=== PATIENT | female | born 1970 | race Caucasian/White ===

== ENCOUNTER 2023-02-12 09:56 | Outpatient (CLI) | payer BC, SELFPAY ==
--- NOTE | 2023-02-12 10:00 | CRLHL7_ITS ---
For Patients: As a result of the Century Cures Act, medical imaging exams and procedure reports are released immediately into your electronic medical record. You may view this report before your referring provider. If you have questions, please contact your health care provider. INDICATION: GYNECOLOGICAL COMPLAINT TECHNIQUE: Chest 2 views. COMPARISON: None. FINDINGS: Cardiovascular and mediastinum: Heart size and vasculature are normal in caliber and appearance. Mediastinum is within normal limits. Lungs and pleural spaces: Lungs are clear. No sign of infiltrate or mass. No sign of pleural effusion. No pneumothorax. Bones and soft tissues: No significant findings. IMPRESSION: Unremarkable chest. Dictated by: uAgusto Parkinson MD @ 02/12/2023 18:15:32 (Electronically Signed)
== END 2023-02-12 09:57 | disposition home or self-care (01) ==
PROVIDERS: PCP Obstetrics & Gynecology; Visit Provider Obstetrics & Gynecology
DX: N94.9 Unspecified condition associated with female genital organs and menstrual cycle (principal)
CPT/HCPCS: 71046

== ENCOUNTER 2023-03-05 15:38 | Outpatient (CLI) | payer BC, SELFPAY ==
--- NOTE | 2023-03-05 16:00 | CRLHL7_ITS ---
For Patients: As a result of the Century Cures Act, medical imaging exams and procedure reports are released immediately into your electronic medical record. You may view this report before your referring provider. If you have questions, please contact your health care provider. Indication: ELEVATED CEA, PELVIC MASS Technique: Postcontrast CT chest, abdomen and pelvis. 69 cc Isovue 370 intravenous contrast. Please note that all CT scans at this facility use dose modulation, iterative reconstruction, and/or weight-based dosing when appropriate to reduce radiation dose to as low as reasonably achievable. Comparison: CT chest 05/13/2015 Findings: In the chest, there is no mediastinal, hilar or axillary adenopathy. No infiltrate, edema, effusion or pneumothorax. Mild linear subsegmental atelectasis right lower lobe. Small incidental pleural-based densities posteriorly. Stable incidental subcentimeter cyst within the left upper lobe. No intrinsic osseous lesion. In the abdomen, there is a subtle area of decreased attenuation within the anterior segment of the right hepatic lobe measuring 7 millimeters, 2/136 additional hypodensity within the right hepatic lobe near the dome measures 3 millimeters, 3/122. Adrenal glands normal. Normal spleen. Normal pancreas. Gallbladder normal. No bowel obstruction. No free air. In the pelvis, the uterus appears normal. There is a cyst within the right ovary measuring 2.9 cm. No excess pelvic free fluid or adenopathy. No bowel obstruction or free air. No abscess. No fracture. Impression: Indeterminate lesions within the liver measuring 7 millimeters and 3 millimeters. MRI liver with and without contrast recommended. No bowel obstruction or inflammatory change. 2.9 cm right ovarian cyst. Please note that all CT scans at this facility use dose modulation, iterative reconstruction, and/or weight-based dosing when appropriate to reduce radiation dose to as low as reasonably achievable. Dictated by Augusto Schreiber MD @ 03/08/2023 8:27:54 PM (Electronically Signed)
== END 2023-03-05 15:39 | disposition home or self-care (01) ==
LOC: CT 15:39
PROVIDERS: PCP Obstetrics & Gynecology; Referring Provider Obstetrics & Gynecology; Visit Provider Obstetrics & Gynecology
DX: R19.00 Intra-abdominal and pelvic swelling, mass and lump, unspecified site (principal); R97.0 Elevated carcinoembryonic antigen [CEA]; K76.9 Liver disease, unspecified; N83.201 Unspecified ovarian cyst, right side
CPT/HCPCS: 71260; 74177; Q9967

== ENCOUNTER 2025-08-25 05:13 | Emergency (ER) | payer BC, SELFPAY ==
--- OUTSIDE RECORDS SUMMARY | 2025-08-25 05:16 | XMS_ITS | Clinical Summary ---
Author Organization [facility] Address [address] [place] [id number] Care Team Providers Care Superintendent Marine Name Role Phone Unavailable Primary Care Provider Unavailabl e Allergies No known active allergies Medications No known medications Active Problems Problem Noted Date Diagnosed Date Hx of MTHFR mutation Immunizations Immunization Administration Dates Next Due COVID-19 vaccine (MicroPhage NTAdvanced Photonix 30mcg/0.3mL) MAXIM DORADO 10/30/2021,03/21/2021,02/21/2021 Influenza Virus, Unspecified 12/24/2019( Deferred: Patient Refused),09/13/2008 Influenza, IIV3 (Age >=3 years) 09/13/2008 Influenza, IIV4 11/21/2021,10/19/2018,11/08/2016 Tdap 08/02/2015 Varicella Vaccine 05/08/1998 Family History Medical History Relation Name Comments Cancer Paternal Grandmother breast Relation Name Status Comments Paternal Grandmother Social History Tobacco Use Types Packs/Day Years Used Date Smoking Tobacco: Never Smokeless Tobacco: Never Tobacco Cessation:Counseling Given: Yes Alcohol Use Standard Drinks/Week Comments Yes 0 (1 standard drink = 0.6 oz pur e alcohol) occasional Social Connections Answer Date Recorded Frequency of Communication with Friends and Fami ly Not on file 12/11/2022 Comments No Sex and Gender Information Value Date Recorded Sex Assigned at Not on file Legal Sex Female 5:25 AM MANAGER ACUTE Gender Identity Not on file Sexual Orientation Not on file Obstetrics History Para Term AB IAB SAB Ectopic Multiple Livin g Live Births 1 1 Date Outcome GA Total Labor Labor/2nd/3rd Weight Sex Type Anes PTL Norah A1 A5 Name Clin Comments:rectovaginal fistula Last Filed Vital Signs Vital Sign Reading Time Taken Comments Blood Pressure 161/95 12/30/2022 1:30 PM MANAGER ACUTE rec heck Pulse 96 12/30/2022 1:27 PM MANAGER ACUTE Temperature 36.9 C (98.5 F) 08/05/2016 4:38 PM CDT Respiratory Rate - - Oxygen Saturation 100% 12/30/2022 1:27 PM MANAGER ACUTE Inhaled Oxygen Concentration - - Weight 64.9 kg (143 lb) 12/30/2022 1:27 PM MANAGER ACUTE Height 164.5 cm (5' 4.76) 08/05/2016 4:38 PM CD T Body Mass Index 23.97 08/05/2016 4:38 PM CDT Plan of Treatment Health Maintenance Due Date Last Done Comments Depression screening for age 12+ 1984 HIV for age 15-65 1987 Hepatitis C screening for ag e 18-79 1990 Hepatitis B series for 19+ ( 1 of 3 - 19+ 3-dose series) 1991 Pap test for age 21-65 08/22/2012 08/22/2009 BMI (ht and wt on same day) for age 18+ 08/05/2017 08/05/2016 Colonoscopy through age 75 2017 Lipids for age 45-75 2017 Mammogram for age 45-75 2017 Pneumococcal series for age 50+ (1 of 1 - PCV) 2022 Zoster (shingles) series for age 50+ (1 of 2) 2022 COVID-19 vaccine series (2024- season) 2025 10/30/2021, 03/21/2021, 02/21/2021 Influenza Vaccine (#1) 2025 2, 10/19/2018, 11/08/2016, Additional history exists Tetanus booster 08/02/2025 08/02/2015 RSV vaccine for adults or (1 - 1-dose 75+ series) 2047 Procedures Procedure Name Priority Date/Time Associated Diagnosis Comments DEPENDENCY CASE MANAGER THIN PREP PAP SCREEN IMAGED Routine 08/22/2009 8:38 AM CDT Routine Gynecological Examination from Last 3 Months or Most Recently Relevant to Health Maintenance Results * DEPENDENCY CASE MANAGER THIN PREP PAP SCREEN IMAGED (08/22/2009 8:38 AM CDT) CYTOLOGY CYTOPATHOLOGY REPORT [facility] Status: Final Status [id number] CLINICAL INFORMATION Last Date of LMP :07/2009 Last Pap Date :May 2008 Last Pap Result :NIL ABN [place]/Bx Past 5 YRS :None Hormone Usage :None Menstrual Status :Regular Periods [place]/Bx done today :No Additional :None given Information HPV Request :HPV if ASCUS SPECIMEN SOURCE :Cervical/vaginal ThinPrep Vial, screening SPECIMEN ADEQUACY :Satisfactory for evaluation Endocervical component present. INT ERPRETATIO N/RESULT Negative for intraepithelial lesion or malignancy (NIL) Cytology 1st Screener :alfonzo Signed by :[facility] This specimen was screened by the FDA approved ThinPrep Imaging System and manually reviewed. NOTE: The Pap test is a screening technique, not a diagnostic procedure. It is used primarily to screen for squamous cancers and precursor lesions. Published studies have shown that it is subject to both false negative and false positive results. The pap test should not be used as the sole means to diagnose or exclude pre-malignant and malignant lesions. COLLECTED:08/22/09 ACCESSIONED: 08/25/09 SIGNED: 09/03/09 [facility] PAP [place] CODE NIL [facility] Cervical/Vaginal (Cervical/Vagina l) 08/22/2009 8:38 AM CDT 08/23/2009 8:35 AM CDT Gayle Rainey MD PATHOLOGY/CYTOLOGY Final R esult [facility] INTERNAL ZIP [address] [address] from Last 3 Months or Most Recently Relevant to Health Maintenance Insurance [facility]
--- OUTSIDE RECORDS SUMMARY | 2025-08-25 05:16 | XMS_ITS | Clinical Summary ---
Author Organization [facility] Address [address] [place] [address] Care Team Providers Care Head Boys Golf Coach Name Role Phone Unavailable Primary Care Provider Unavailabl e Source Comments Patient records contain information from all sites at [facility]. For routine questions regarding patient records, call [phone] during business hours, M-F 8:00 AM - 5:00 PM Central Time. Record requests for emergency care only can be directed to [phone] at any time.[facility] Allergies No known active allergies Medications * This document contains information received from the source organization and may not represent a complete record from that organization. cholecalciferol, vitamin D3, 25 mcg (1,000 Unit) tablet Take 1 tablet by mouth every 3 (three) days. 02/09/2009 Active Immunizations Immunization Administration Dates Next Due Influenza, Seasonal, Injectable 09/13/2008 Influenza, Unspecified 09/13/2008 RZV (SHINGRIX) 07/04/2023(Deferred: Other) Tdap 08/02/2015 NEISHA 05/08/1998 influenza vaccine quad (FLUZ ONE/FLUARIX) (6 months and older)(PF) 11/21/2021,10/19/2018,11/08/2016 Family History Medical History Relation Name Comments Cancer Father bladder Breast cancer (in one breast) Maternal Grandmother car ivon Dementia Mother dat Hyperlipidemia (high cholesterol) Mother dat Hypertension Mother dat Melanoma Mother dat Osteoporosis Mother dat Stroke Mother dat Breast cancer (in one breast) Paternal Grandmother mick is Relation Name Status Comments Father bairon Maternal Grandmother hieu Mother dat Paternal Grandmother elliot Social History Tobacco Use Types Packs/Day Years Used Date Smoking Tobacco: Never Passive Smoke Exposure: Past Smokeless Tobacco: Never Tobacco Cessation:Counseling Given: Not Answered Alcohol Use Standard Drinks/Week Comments Yes 1 (1 standard drink = 0.6 oz pur e alcohol) Humiliation, Afraid, Rape, and Kick questionnair e Answer Date Recorded Within the last year, have y ou been afraid of your partner or ex-partner? No 04/21/2023 Within the last year, have y ou been humiliated or emotionally abused in other ways by your partner or ex-partner? No Within the last year, have y ou been kicked, hit, slapped, or otherwise physically hurt by your partner or ex-partner? No 04/21/2023 Within the last year, have y ou been raped or forced to have any kind of sexual activity by your partner or ex-partner? No 04/21/2023 Hunger Vital Sign Answer Date Recorded Within the past 12 months, y ou worried that your food would run out before you got the money to buy more. Never true 04/21/20 23 Within the past 12 months, t he food you bought just didn't last and you didn't have money to get more. Never true 04/21/2023 PRAPARE - Transportation Answer Date Re corded In the past 12 months, has l ack of transportation kept you from medical appointments or from getting medications? No 04/03 In the past 12 months, has l ack of transportation kept you from meetings, work, or from getting things needed for daily living? No 04/21/2023 Housing Stability Answer Date Recorded What is your living situation today? [place] a [place] place [place] live 04/21/2023 Education Answer Date Recorded What is the highest level of school you have completed or the highest degree you have received? Bachelor's degree (e.g., BA, AB, BS) 06/20/2019 Comments Unknown Sex and Gender Information Value Date Recorded Sex Assigned at Female 11/14/2018 8:53 PM JOB SERVICE SPECIALIST Legal Sex Female 12:18 PM JOB SERVICE SPECIALIST Gender Identity Female 11/14/2018 8:53 PM JOB SERVICE SPECIALIST Sexual Orientation Not on file Last Filed Vital Signs Vital Sign Reading Time Taken Comments Blood Pressure 130/90 04/25/2023 8:55 AM CDT Pulse 101 04/25/2023 8:55 AM CDT Temperature - - Respiratory Rate - - Oxygen Saturation - - Inhaled Oxygen Concentration - - Weight 64.3 kg (141 lb 12.1 oz) 04/25/2023 8:55 AM CDT shoes on Height 167 cm (5' 5.75) 04/25/2023 8:55 AM CDT shoes on Body Mass Index 23.06 04/25/2023 8:55 AM CDT Plan of Treatment Health Maintenance Due Date Last Done Comments CT Colonography 1972 Cervical/Vaginal Cancer Screening 1972 Cologuard 1972 Colonoscopy 1972 Colorectal Cancer Screening 1972 FIT 1972 Fasting Glucose for Diabetes Screening 1972 HIV Screening 1972 Hepatitis C Screening 1972 Lipid (Cholesterol) Screening 1972 Hepatitis B Vaccines (1 of 3 - 19+ 3-dose series) 1991 Varicella Vaccines (2 of 2 - 13+ 2-dose series) 06/05/1998 05/08/1998 Pneumococcal vaccine (50+ years) (1 of 1 - PCV) 2022 Zoster Vaccines (1 of 2) 2022 Mammogram 07/08/2024 07/08/2023, 11/03, 01/05/2021, Additional history exists Depression Screening (Annual PHQ-2) 11/03/2024 COVID-19 Vaccine ( - season) 2025 10/30/2021, 03/21/2021, 02/21/2021 Influenza Vaccine (#1) 2025 , 10/19/2018, 11/08/2016, Additional history exists DTaP,Tdap,and Td Vaccines (2 - Td or Tdap) 08/02/2025 08/02/2015 IPV Vaccines Aged Out No longer eligi ble based on patient's age to complete this topic Medical Devices Implanted Type Area Cork Wirer Device Identifier Shelf Expiration Date Model / Serial / Lot Imaging Marker Imaging Marker Left: Breast Procedures Procedure Name Priority Date/Time Associated Diagnosis Comments BI BREAST DIAGNOSTIC BILATERAL WITH TOMOSYNTHESIS RAD - Routine (most inpatients and all outpatients) 07/08/2023 10:40 AM CDT Abnormal Mammogram from Last 3 Months or Most Recently Relevant to Health Maintenance Results * BI Breast Diagnostic Bilateral with Tomosynthesis (07/08/2023 10:40 AM CDT) Anatomical Region Laterality Modality Breast, Breast Imaging RST L OS, Breast Imaging ARZ LOS, Breast Imaging FLA LOS Bilateral Mammography 07/08/2023 11:4 2 AM CDT Impressions 07/08/2023 11:51 AM CDT No mammographic or sonographic findings of malignancy. RECOMMENDATION: Resume Routine Mammogram Annual screening mammogram. ASSESSMENT: BI-RADS: 2: Benign. Narrative 07/08/2023 11:51 AM CDT EXAM: BI BREAST DIAGNOSTIC BILATERAL WITH TOMOSYNTHESIS, BI ULTRASOUND BREAST FOCUSED LEFT INDICATION: Short term interval follow-up COMPARISON: Prior exam(s) were available and reviewed for comparison. DENSITY: c. The breast(s) are heterogeneously dense, which may obscure small masses. FINDINGS: Right breast: Stable mammogram. No new mass, distortion or suspicious microcalcifications. Left breast: Stable mammogram. Nothing concerning for malignancy. Left breast ultrasound: Follow-up reevaluation of the mass previously seen at 6 o'clock 4 cm from the nipple measures now 6.3 x 3.2 x 7.2 mm, as compared to 8.4 x 8.4 x 3.2 mm previously. This finding has been stable for over 2 years and considered benign. Procedure Note Gonzalez Kapoor M.D. - 07/08/2023 EXAM: BI BREAST DIAGNOSTIC BILATERAL WITH TOMOSYNTHESIS, BI ULTRASOUNDBREAST FOCUSED LEFT INDICATION: Short term interval follow-up COMPARISON: Prior exam(s) were available and reviewed for comparison. DENSITY: c. The breast(s) are heterogeneously dense, which may obscuresmall masses. FINDINGS: Right breast: Stable mammogram. No new mass, distortion or suspiciousmicrocalcifications. Left breast: Stable mammogram. Nothing concerning for malignancy. Left breast ultrasound: Follow-up reevaluation of the mass previously seenat 6 o'clock 4 cm from the nipple measures now 6.3 x 3.2 x 7.2 mm, as compared to 8.4 x 8.4 x 3.2mm previously. This finding has been stable for over 2 years and considered benign. IMPRESSION: No mammographic or sonographic findings of malignancy. RECOMMENDATION: Resume Routine Mammogram Annual screening mammogram. ASSESSMENT: BI-RADS: 2: Benign. Erica Bustamante M.D. IMG BI PROCEDURES Final Result from Last 3 Months or Most Recently Relevant to Health Maintenance Insurance [facility]
[2025-08-25 05:26] VITALS: BP 164/114; PULSE 115; RESP 16; TEMP 36.6; O2SAT 97; BMI 23.3
--- NOTE | 2025-08-25 05:50 | CRLHL7_ITS ---
For Patients: As a result of the Cures Act, medical imaging exams and procedure reports are released immediately into your electronic medical record. You may view this report before your referring provider. If you have questions, please contact your health care provider. INDICATION: Pain, not otherwise described. COMPARISON: None available. TECHNIQUE: Three views of the left shoulder. FINDINGS: Mineralization: Normal. Alignment: Normal. Bones and Joints: No fracture is identified. Soft Tissues: Amorphous periarticular soft tissue calcification is seen adjacent to the superolateral humerus consistent with calcific tendinitis of the rotator cuff. There is also an additional small comparatively well-defined round calcification measuring 2 mm. Differential diagnostic considerations include calcific bursitis. IMPRESSION: Amorphous periarticular soft tissue calcification is seen adjacent to the superolateral humerus consistent with calcific tendinitis of the rotator cuff. There is also an additional small comparatively well-defined round calcification measuring 2 mm. Differential diagnostic considerations include calcific bursitis. No osseous findings to explain the clinical history. Dictated by Mark Garcia MD @ 08/25/2025 6:14:31 AM (Electronically Signed)
[2025-08-25] MEDS: KETOROLAC 10 MG TABLET PO (05:55)
--- NOTE | 2025-08-25 06:13 | ED_ITS ---
HPI - General Adult General Chief complaint: Shoulder Injury/Pain Stated complaint: L shoulder pain Time Seen by Provider: 08/25/25 05:42 Source: patient Mode of arrival: ambulatory Limitations: no limitations History of Present Illness HPI narrative: 54-year-old female presents in the wee hours with 5 days of right shoulder pain at the anterior shoulder capsule area, does radiate slightly into the deltoid. Difficult to abduct and externally rotate the arm. Tried taking sub therapeutic doses of ibuprofen and Tylenol each once the day before. Has not taken medication this morning. No trauma or injury. Has not had this evaluated in clinic or urgent care. Try doing some ?stretches? with some temporary improvement in symptoms. Difficult to sleep. No history of prior surgery to this area. No neck pain. No radiculopathy. No fever or headache. No shortness of breath. No difficulties with the elbow, wrist or hand. Opposite right shoulder is unaffected. Pain is achy and constant, worse with movement. No numbness or tingling. Reports past medical history is benign. No major long-term health problems. No long-term medications. No known drug allergies. ROS is notable for the musculoskeletal symptoms in the left shoulder. Denies musculoskeletal symptoms in any other joints, no neurological, skin or generalized changes. Related Data Previous Rx's ?Medication ?Instructions ?Recorded prednisone 20 mg tablet 20 mg PO BID 5 days #10 tabs 08/25/25 Allergies Allergy/AdvReac Type Severity Reaction Status Date / Time No Known Allergies Allergy Unknown Unknown Verified 12/11/22 12:03 Exam Const: Vital Signs, click to edit/add: Vital Signs - 24 hr 08/25/25 05:26 Temperature 97.9 F Pulse Rate [Pulse Oximeter] 115 H Respiratory Rate 16 Blood Pressure [Ri ght Upper Arm] 164/114 H Pulse Oximetry 97 Oxygen Delivery Me thod Room Air Documenting provider has reviewed patient's vital signs: yes Common normals: no apparent distress General appearance: cooperative Other: Guards shoulder but otherwise normal interaction. Appears well nourished, well hydrated. Good historian. HENMT: Common normals: normocephalic Head and scalp: normocephalic Face and sinus: normal facial exam Eye: General eye: normal appearance of both eyes Neck & C-Spine: Common normals: full ROM General: normal visual inspection Cervical spine: cervical ROM normal; no paracervical muscle tenderness Resp: Common normals: normal respiratory effort Effort & inspection: able to speak in complete sentences Cardio: Common normals: regular rate and regular rhythm Rate: regular rate Rhythm: regular rhythm Other: Normal radial pulses bilaterally. Regular rate and rhythm. Extremity: Other: Right shoulder with normal range of motion. No weakness. No point tenderness. Normal examination of both wrists, elbows and hands as well. As for the left wrist. Active range of motion is limited especially with abduction as 0-15 degrees and external rotation. Normal biceps strength. Passive range of motion does seem fairly normal but she does guard the shoulder so much that it is quite difficult to tell. There is no point bony tenderness to the supra scapular area, clavicle, glenohumeral joint or deltoid. No deformities, no swelling or effusion. Overlying skin is normal. Normal hand strength and sensation. Psych: Common normals: speech normal Activity/motor behavior: appropriate eye contact Speech: normal speech Insight: insight good Judgement: judgment good Skin: Common normals: no rashes or lesions noted General skin exam: no rashes or lesions noted Course Course ED Course: Left shoulder pain, nontraumatic. Suspect rotator cuff disease but cannot exclude frozen shoulder, sprain, glenohumeral arthritis, septic joint, radiculopathy, gout, infectious etiology, inflammatory arthropathy, amongst others. Will give Toradol 10 mg p.o. x1 and obtain x-ray. Reevaluation(s) Reevaluation #1: Update: Counseled patient on x-ray findings. There has been of calcified tendinosis. Is getting some improvement on the Toradol. Was able to get a few more degrees of motion with me showing her some seated exercises. Counseled on the importance of continued range of motion exercises to prevent worsening stiffness. Will give 40 mg of prednisone p.o. x1 here in the ED head and start patient on 20 mg b.i.d.. She will need to make a follow-up appointment with physical therapy, would recommend she start this in 4 or 5 days. Home exercise plan given in the interim. Counseled on proper doses of Tylenol and ibuprofen for pain control. Counseled that MRIs can be sometimes helpful in better diagnosing these types of symptoms but often people get better with physical therapy and prednisone. Because of this, MRI is not first-line treatment. Primary care to follow-up, scheduled for next Friday. Additional referrals for injection, further investigation and or MRI may be warranted if course of physical therapy is not successful. Written instructions provided. Alarm symptoms reviewed. Vital Signs Vital signs: Initial Vital Signs Temperature 97.9 F 08/25/25 05:26 Temperature Source Temporal Artery Scan 08/25/25 05:26 Pulse Rate 115 H 08/25/25 05:26 Respiratory Rate 16 08/25/25 05:26 Blood Pressure 164/114 H 08/25/25 05:26 Blood Pressure Mean 130 H 08/25/25 05:26 Blood Pressure Position Sitting 08/25/25 05:26 Pulse Oximetry 97 08/25/25 05:26 Oxygen Delivery Method Room Air 08/25/25 05:26 Vital Signs Temperature 97.9 F 08/25/25 05:26 Pulse Rate 115 H 08/25/25 05:26 Respiratory Rate 16 08/25/25 05:26 Blood Pressure 164/114 H 08/25/25 05:26 Pulse Oximetry 97 08/25/25 05:26 Oxygen Delivery Method Room Air 08/25/25 05:26 Temperature 97.9 F 08/25/25 05:26 Pulse Rate 115 H 08/25/25 05:26 Respiratory Rate 16 08/25/25 05:26 Blood Pressure 164/114 H 08/25/25 05:26 Pulse Oximetry 97 08/25/25 05:26 Oxygen Delivery Method Room Air 08/25/25 05:26 Medications Administered Medications: Discontinued Medications Generic Name Dose Route Start Last Admin Trade Name Freq PRN Reason Stop Dose Admin Acetaminophen 1,000 mg 08/25/25 06:33 08/25/25 06:37 Acetaminophen 500 Mg Tablet PO 08/25/25 06:34 1,000 mg ONCE ONE Administration Ketorolac Tromethamine 10 mg 08/25/25 05:50 08/25/25 05:55 Ketorolac 10 Mg Tablet PO 08/25/25 05:51 10 mg ONCE ONE Administration Prednisone 40 mg 08/25/25 06:33 08/25/25 06:37 Prednisone 20 Mg Tablet PO 08/25/25 06:34 40 mg ONCE ONE Administration Medical Decision Making Imaging Data X-ray left shoulder: Attestation: I have reviewed the pertinent imaging results. My impression: Calcifications along supraspinatus tendon insertion area. No signs of effusions or fracture. Radiologist's impression: IMPRESSION: Amorphous periarticular soft tissue calcification is seen adjacent to the superolateral humerus consistent with calcific tendinitis of the rotator cuff. There is also an additional small comparatively well-defined round calcification measuring 2 mm. Differential diagnostic considerations include calcific bursitis. No osseous findings to explain the clinical history. Dictated by Mark Garcia MD @ 08/25/2025 6:14:31 AM Discharge Plan Discharge Clinical Impression: Rotator cuff strain Patient Disposition: Home, Self-Care Condition: Stable Instructions: Rotator Cuff Injury (ED), Rotator Cuff Injury Exercises (DC) Additional Instructions: As we discussed, I think there is inflammation in your rotator cuff. This is a common overuse type injury for many people. I do not think that there is a tear, but it would not be easily seen on x-ray. Because so many people with strains or even tears improve with prednisone and physical therapy, it is recommended that we do a course of each of these before we worked this up any further. I will start you on prednisone. You received a dose here in the emergency room. You will continue on 20 mg twice daily for 5 days, it does not have to be exactly 12 hours apart, try not to take the evening dose within 3 hours of bedtime as it may worsen insomnia. Please call and schedule with physical therapy at your earliest convenience. I would recommend that you start this on Friday, but call today for the appointment. Let them know that you have a rotator cuff strain on the left side and they will know what to do. Please keep your follow-up appointment for Fr ling as scheduled. Your primary care doc will use this to see if any further advanced imaging is needed or if we should start with the original plan made here in the emergency room. You are going to need to take therapeutic proper doses of Tylenol and ibuprofen to help with her pain. For you, this would be 600 mg of ibuprofen every 6 hours and or Tylenol 1000 mg every 6 hours. It is also okay to use gentle dgdr-mas-msffiek sleep aids like Benadryl, Unisom or melatonin 10 mg at bedtime to help you sleep as well. I tend to find that heat and Mentholatum muscle rubs are very helpful for this. Feel free to try these as well. You should use the emergency room for sudden and severe neurological changes, weakness, stroke-like symptoms. Otherwise, follow up in clinic or urgent care for this type of illness. Activity Level: Activity as Tolerated Discharge Diet: Regular Prescriptions: New prednisone 20 mg tablet 20 mg PO BID 5 Days Qty: 10 0RF Follow Up/Referrals: Kae Peterson MD [Referring, [employer] CLERK/SPECIALIST] Stand Alone Forms: [employer] Info Instructions
[2025-08-25] MEDS: ACETAMINOPHEN 500 MG TABLET 1000 MG PO (06:37)
== END 2025-08-25 06:49 | disposition home or self-care (01) ==
PROVIDERS: Emergency Provider Family Medicine
DX: S46.012A Strain of muscle(s) and tendon(s) of the rotator cuff of left shoulder, initial encounter (principal)
CPT/HCPCS: 73030; 99283; A9270; J7512

== ENCOUNTER 2025-09-06 12:41 | Outpatient (CLI) | payer BC, SELFPAY ==
--- NOTE | 2025-09-06 13:00 | MR_ITS ---
[address] [address] Phone:?[phone] Fax:?[phone] Referring Physician Information: Alex Quintero M.D. [address] [facility] [address] Phone:?[phone] Fax:?[phone] Patient:Dangelo Chong D.O.B:?1970 Sex:?Female Phone:?[phone] [facility] MRN:?[id number] Exam Date:?09/06/2025 EXAM: MRI OF THE LEFT SHOULDER CLINICAL INFORMATION: The patient is a 54-year-old with left shoulder pain. Evaluate rotator cuff. Evaluate for calcific tendinitis. PRIOR SURGERY: None reported. COMPARISON STUDIES: Comparison is made to prior radiographs dated 08/25/2025. TECHNICAL INFORMATION: Imaging was performed on a high-field, 1.5 Mitzi MR scanner. Axial, coronal, and sagittal proton-density and T2 imaging of the left shoulder was performed in addition to coronal STIR imaging. FINDINGS: Articular/Extraarticular collections: Effusion: None. Subacromial/subdeltoid: Mild to moderate fluid is seen within the subacromial/subdeltoid bursa, in keeping with changes of bursitis. Subcoracoid: No evidence for bursitis. Osseous structures: Proximal humerus: There is reactive marrow edema involving the anterior aspect of the greater tuberosity, seen to best advantage on coronal series 5 image 11. The findings are in keeping with the rotator cuff pathology discussed below. No evidence for well-defined greater or lesser tuberosity fracture can be seen. No Hill-Sachs or reverse Hill-Sachs lesion is identified. Glenoid: No acute bony abnormality of the glenoid fossa or glenoid neck can be seen. Acromioclavicular joint: Mild changes of acromioclavicular joint arthrosis are present. Coracoacromial arch: Acromion morphology: Type II. No evidence for os acromiale. Acromiohumeral space: Moderately narrowed. Coracohumeral space: Within normal limits. Rotator cuff and deltoid: Supraspinatus: The supraspinatus tendon is abnormal in appearance. There are changes of mild to moderate supraspinatus tendinosis with superimposed partial- thickness intrasubstance and superficial surface tearing of the anterior and distal tendon fibers, involving up to 80% of the tendon thickness and seen to best advantage on coronal series 6 image 10 and on sagittal series 9 image 5. The area of partial-thickness tearing measures 12 mm in mediolateral dimension and 10 mm in anteroposterior dimension. Mild areas of calcific tendinosis in this region can be seen. No definite full-thickness tearing or retraction is seen. No atrophic changes of the supraspinatus muscle belly are identified. Infraspinatus: Mild to moderate infraspinatus tendinosis can be seen. There is no evidence for full or partial-thickness tearing. No atrophic changes of the infraspinatus muscle belly are present. Teres minor: No evidence for tendinosis, tearing, or associated muscle belly atrophy. Subscapularis: Mild to moderate subscapularis tendinosis can be seen. There is no evidence for full or partial-thickness tearing. No atrophic changes of the subscapularis muscle belly are noted. Deltoid: No evidence for strain or tearing. Biceps tendon: The intra-articular and biceps sulcus portions of the biceps tendon are normal. There is no evidence for rupture, dislocation, or subluxation. Glenohumeral joint and labrum: Articular Cartilage: No chondral injuries along the articular surfaces of the glenohumeral articulation can be seen. No osteoarthritic changes are seen. Labrum: The anterior, posterior, superior, and inferior portions of the labrum appear intact. No evidence for paralabral ganglion cyst formation can be seen. Capsular Soft Tissues: No definite capsular abnormalities of the glenohumeral joint are seen. No evidence for capsular tearing is present and there are no MR signs of adhesive capsulitis. CONCLUSION: 1. Mild to moderate supraspinatus tendinosis with superimposed high-grade partial-thickness intrasubstance and superficial surface tearing of the anterior and distal tendon fibers. Mild calcific tendinosis in this region is thought to be present. No full-thickness tearing or retraction is seen. 2. Mild to moderate infraspinatus and subscapularis tendinosis. 3. Mild to moderate fluid within the subacromial/subdeltoid bursa, in keeping with changes of bursitis. 4. Reactive marrow edema involving the anterior aspect of the greater tuberosity. 5. Mild acromioclavicular joint arthrosis with moderate narrowing of the acromiohumeral space. [facility] Electronically signed on 09/06/2025 4:18:00 PM by aSroj Gan M.D.
== END 2025-09-06 12:42 | disposition home or self-care (01) ==
LOC: MRI 12:41
PROVIDERS: PCP Family Medicine; Visit Provider Orthopaedic Surgery
DX: M25.512 Pain in left shoulder (principal); S46.012A Strain of muscle(s) and tendon(s) of the rotator cuff of left shoulder, initial encounter; M19.012 Primary osteoarthritis, left shoulder
CPT/HCPCS: 73221

== ENCOUNTER 2025-09-28 14:13 | Outpatient (CLI) | payer BC, SELFPAY ==
--- NOTE | 2025-09-28 14:30 | MR_ITS ---
[facility] [address] [facility] [address] Phone:?[phone] Fax:?[phone] Referring Physician Information: Joellen Peralta [address] [facility] [address] Phone:?[phone] Fax:?[phone] Patient:Dangelo Chong D.O.B:?1970 Sex:?Female Phone:?[phone] [facility] MRN:?[id number] Exam Date:?09/28/2025 EXAM: MRI of the LEFT HIP, without contrast CLINICAL: Female, 54 years old, with left hip pain. INDICATION: Evaluate for left hip internal derangement etiology. PRIOR SURGERY: None reported. PLAIN FILMS: 09/21/2025 radiographic series of the left hip. COMPARISONS: No prior MRIs available. TECHNICAL: Using a 1.5T MR scanner: 4.0 mm?coronals: PD, T2 4.0 mm?sagittals: PD, T2 3.0 mm oblique?axials: PD 4.0 mm?axials: PDFS 5.0 mm?coronals: T1, STIR of pelvis including hips SEDATION: None. CONTRAST: No intravenous contrast. IMPRESSION: 1. 1-1.5 cm degeneration and irregularity/tear of the anterosuperior labrum of indeterminate significance which may be correlated. 2. 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 - Normal volume hip without acetabular retroversion. - Small anterosuperior fibrocystic osseous lesion as can be associated with residua of JOSSY. 3. Localized towards 1 cm full-thickness chondromalacia/thinning of the superior left hip joint, without subjacent marrow edema or pathologic left hip joint effusion. 4. No bone stress injuries or marrow edema. 5. No myotendinous abnormalities. FINDINGS: Hip joint: Effusion: Minimal, perhaps physiologic, left hip joint effusion. Ganglion/paralabral cyst: None. Articular cartilage: Very localized less than 1 cm grade III-IV chondral thinning of the anterosuperior left hip joint is not associated with subjacent reactive marrow edema (sagittal T2 series 9, image 10-9; coronal series 5, images 12-14). Loose bodies: None. Labrum: There appears ill-defined signal alteration and some attenuation reflecting degeneration but also some more prominent irregularity/tear of the anterosuperior labrum (oblique axial PD series 6, images 19-13). The posterosuperior labrum appears intact. Proximal femur: No femoral occult fracture, bone stress injury, marrow edema or osteonecrosis. Based on oblique axial series 6, image 15 at approximately 10 o'clock anterosuperiorly, the maximum femoral alpha angle measures elevated at approximately 63?. At that location is a small fibrocystic osseous lesion of the anterosuperior femoral head-neck junction, another finding which can be associated with residua of femoroacetabular impingement (oblique axial series 6, images 15-16; coronal image 15; sagittal images 13-14). The femoral alpha angle also measures elevated at 63? on coronal series 4, image 12 at approximately 12 o'clock. Acetabulum: No subchondral cysts, periacetabular ossicles or marrow edema. Version: No acetabular retroversion. Coverage:?Left lateral center edge (CE) angle measures relatively normal at approximately 31? (corrected for any pelvic tilt) (normal 25?-39?), midline coronal series 4, image 12. Ligamentum teres: Intact and unremarkable. Pelvis osseous structures: Sacrum: No stress/insufficiency fractures or marrow edema/pathology. Sacroiliac joints: No demonstrable sacroiliitis. Pubic rami: No stress/insufficiency fractures or marrow edema/pathology. Symphysis pubis: No ongoing osteitis pubis. AIIS: Superoinferior extent: 2 mm superior to the level of the acetabular roof. Anterior extent: 11 mm anterior to the anterior mid-acetabular rim. Myotendinous structures: Gluteus abductors: No convincing insertional tendinopathy or tear of gluteus minimus or medius. Adductors: No demonstrable tendinopathy or strain/tear. Rectus abdominis/pyramidalis: No demonstrable tear/strain. Pre-pubic aponeurotic complex: Intact, without evidence of common rectus abdominis-adductor longus aponeurosis or pubic plate lesion. Hamstrings: Intact semimembranosus, semitendinosus and biceps femoris tendons, without tendinopathy or tear. Flexors: Intact iliopsoas and rectus femoris, without strain/tear. External rotators: Intact, without demonstrable ischiofemoral impingement. Gluteal aponeurotic fascia and IT band: Unremarkable. Bursae: No demonstrable trochanteric, iliopsoas, or iliopectineal bursitis. Intrapelvic contents: Free fluid: No free fluid seen within the pelvis. Pelvic viscera: Up to approximately 3 cm simple-appearing right adnexal mass/cyst and a smaller left adnexal cyst. No other discrete intrapelvic mass is identified. Lymph nodes: No pathologically enlarged lymphadenopathy. Neurovascular structures: No discrete cyst, mass or other compression upon the portions visualized of sciatic or femoral nerves. [facility] Electronically signed on 09/30/2025 12:45:00 PM by Javier Collier M.D.
== END 2025-09-28 14:14 | disposition home or self-care (01) ==
PROVIDERS: PCP Family Medicine; Visit Provider Physician Assistant
DX: M24.852 Other specific joint derangements of left hip, not elsewhere classified (principal); M17.12 Unilateral primary osteoarthritis, left knee; M25.552 Pain in left hip; M16.7 Other unilateral secondary osteoarthritis of hip
CPT/HCPCS: 73721